=== PATIENT | female | born 1970 | race Caucasian/White ===

== ENCOUNTER 2017-04-05 04:24 | Emergency (ER) | payer BC ==
[~2017-04-05] VITALS: Ht 170.2 cm; Wt 127.3 kg
[2017-04-05 04:26] VITALS: TEMP 98.6
[2017-04-05 05:05] LABS: BASO % 0.5 % (0.0-2.0); EOS # 0.2 (0.0-0.7); EOS % 2.4 % (0-4.0); GRAN # 3.8 (1.4-6.5); HEMATOCRIT 42.7 % (37.0-47.0); HEMOGLOBIN 14.5 g/dl (12.5-16.0); LYMPH # 1.9 (1.2-3.4); LYMPH % 30.8 % (20.0-51.0); MEAN CELL VOLUME 79 fl (80.0-100.0); MEAN CORPUSCULAR HEMOGLOBIN 27 pg (27.0-31.0); MEAN CORPUSCULAR HGB CONC 34 g/dl (33.0-37.0); MEAN PLATELET VOLUME 9.3 fl (7.4-10.4); MONO # 0.4 (0.1-0.6); PLATELET COUNT 226 K/mm3 (130-400); RED BLOOD COUNT 5.41 M/mm3 (4.10-5.30); WHITE BLOOD COUNT 6.3 K/mm3 (4.8-10.8)
[2017-04-05 05:15] LABS: ADJUSTED CALCIUM 9.4 mg/dL (8.4-10.2); ALBUMIN 4.1 gm/dL (3.5-5.0); BILIRUBIN,TOTAL 0.8 mg/dL (0.0-1.0); C-REACTIVE PROTEIN 2.1 mg/dL (0.0-0.9); CALCIUM 9.5 mg/dL (8.4-10.2); CREATININE, serum 0.71 mg/dL (0.52-1.25); TOTAL PROTEIN 7.1 gm/dL (6.4-8.2)
[2017-04-05 05:24] LABS: ERYTHROCYTE SEDIMENTATION RATE 4 mm/hr (0-20)
[2017-04-05] MEDS ORDERED: DOXYCYCLINE HY100 MG PO (05:39)
[2017-04-05] MEDS ORDERED: LYRICA 150MG C150 MG PO (05:40)
[2017-04-05 06:13] LABS: PH 6 (5-8); SQUAMOUS EPITHELIAL 0-2 /hpf; URINE APPEARANCE Clear; URINE BACTERIA None Seen /hpf; URINE BILIRUBIN Negative (NEGATIVE); URINE BLOOD Negative (NEGATIVE); URINE COLOR Yellow; URINE GLUCOSE Negative (NEGATIVE); URINE KETONE Negative (NEGATIVE); URINE RBC 0-2 /hpf; URINE UROBILINOGEN Negative (NEGATIVE); URINE WBC 0-2 /hpf
[2017-04-05] MEDS ORDERED: ZOFRAN8 MG PO (06:47)
[2017-04-05] MEDS ORDERED: PERCOCET 325 MG1 TA2 PO (06:47)
[2017-04-05] MEDS ORDERED: CIPRO 500MG TA500 MG PO (06:47)
[2017-04-05] MEDS ORDERED: ULTRAM 50MG TAB50 MG PO (06:47)
[2017-04-05] MEDS ORDERED: FLAGYL500 MG PO (06:47)
[2017-04-05 07:02] VITALS: BP 108/56; PULSE 82
== END 2017-04-05 07:46 | disposition home or self-care (01) ==
LOC: COL.ER 04:24
PROVIDERS: Emergency Medicine
DX: K57.92 Diverticulitis of intestine, part unspecified, without perforation or abscess without bleeding (principal); Z87.39 Personal history of other diseases of the musculoskeletal system and connective tissue
CPT/HCPCS: J1170; J2405; Q9967

== ENCOUNTER → 2019-09-27 | Outpatient (CLI) | payer BC ==
[2005-11-28 07:27] VITALS: TEMP 98.9
[~2019-09-27] MED LIST: CIPRO 500MG TA500 MG PO; DOXYCYCLINE HY100 MG PO; FLAGYL500 MG PO; LYRICA 150MG C150 MG PO; PERCOCET 325 MG1 TA2 PO; ULTRAM 50MG TAB50 MG PO; ZOFRAN8 MG PO
== END ==
LOC: COL.RAD 07:22
DX: R94.5 Abnormal results of liver function studies (principal); R10.11 Right upper quadrant pain

== ENCOUNTER → 2019-10-30 | Outpatient (CLI) | payer BC ==
[2005-11-28 07:27] VITALS: TEMP 98.9
[~2019-10-30] MED LIST changes: +CRESTOR5 MG PO; +LOFIBRA160 MG PO
== END ==
LOC: LIGHT 08:58
DX: Z02.89 Encounter for other administrative examinations (principal)

== ENCOUNTER → 2020-01-23 | Outpatient (CLI) | payer BC ==
[~2020-01-23] VITALS: Ht 167.6 cm; Wt 145.8 kg
[2020-01-23 15:05] VITALS: BP 116/76; PULSE 84
== END ==
LOC: LIGHT 14:48
DX: E66.01 Morbid (severe) obesity due to excess calories (principal); Z68.43 Body mass index [BMI] 50.0-59.9, adult
CPT/HCPCS: G0463

== ENCOUNTER → 2020-02-03 | Outpatient (CLI) | payer BC ==
[2005-11-28 07:27] VITALS: TEMP 98.9
[~2020-02-03] MED LIST changes: +CRESTOR 10MG10 MG PO; -CRESTOR5 MG PO
== END ==
LOC: BHSO 08:53

== ENCOUNTER → 2020-03-05 | Outpatient (CLI) | payer BC ==
[~2020-03-05] VITALS: Ht 167.6 cm; Wt 145.4 kg
[~2020-03-05] MED LIST changes: -CRESTOR 10MG10 MG PO; +CRESTOR5 MG PO
[2020-03-05 16:26] VITALS: BP 120/86; PULSE 100
== END ==
LOC: LIGHT 14:00
DX: E66.01 Morbid (severe) obesity due to excess calories (principal); Z68.43 Body mass index [BMI] 50.0-59.9, adult; E11.9 Type 2 diabetes mellitus without complications; E78.5 Hyperlipidemia, unspecified
CPT/HCPCS: G0463

== ENCOUNTER → 2020-04-02 | Outpatient (CLI) | payer BC ==
[~2020-04-02] VITALS: Ht 167.6 cm; Wt 144.5 kg
[~2020-04-02] MED LIST changes: +CRESTOR 10MG10 MG PO; -CRESTOR5 MG PO
[2020-04-02 08:44] VITALS: BP 106/72; PULSE 72
== END ==
LOC: LIGHT 08:34
DX: E66.01 Morbid (severe) obesity due to excess calories (principal); Z68.43 Body mass index [BMI] 50.0-59.9, adult; E11.9 Type 2 diabetes mellitus without complications; E78.5 Hyperlipidemia, unspecified
CPT/HCPCS: G0463

== ENCOUNTER → 2020-05-07 | Outpatient (CLI) | payer BC ==
[~2020-05-07] VITALS: Ht 167.6 cm; Wt 143.1 kg
[~2020-05-07] MED LIST changes: +AMBIEN 10MG10 MG PO
[2020-05-07 16:07] VITALS: BP 104/80; PULSE 100
== END ==
LOC: LIGHT 11:20
DX: E66.01 Morbid (severe) obesity due to excess calories (principal); E78.5 Hyperlipidemia, unspecified; E11.9 Type 2 diabetes mellitus without complications
CPT/HCPCS: G0463

== ENCOUNTER → 2020-05-28 | Outpatient (CLI) | payer BC ==
[~2020-05-28] VITALS: Ht 167.6 cm; Wt 142.4 kg
[2020-05-28 11:07] VITALS: BP 116/84; PULSE 104
== END ==
LOC: LIGHT 11:00
DX: E66.01 Morbid (severe) obesity due to excess calories (principal); Z68.43 Body mass index [BMI] 50.0-59.9, adult; E11.9 Type 2 diabetes mellitus without complications; E78.5 Hyperlipidemia, unspecified
CPT/HCPCS: G0463

== ENCOUNTER → 2020-10-14 | Outpatient (CLI) | payer BC ==
[~2020-10-14] VITALS: Ht 168.9 cm; Wt 121.6 kg
[~2020-10-14] MED LIST changes: +OMNICEF 300MG300 MG PO; +ONE-A-DAY ESSE1 EACH PO
== END ==
LOC: DIET.TELE 15:21
DX: E66.01 Morbid (severe) obesity due to excess calories (principal); Z68.41 Body mass index [BMI] 40.0-44.9, adult

== ENCOUNTER → 2021-02-08 | Outpatient (CLI) | payer BC ==
[2005-11-28 07:27] VITALS: PULSE 98; TEMP 98.9
== END ==
LOC: MC.RAD 08:52
DX: Z12.31 Encounter for screening mammogram for malignant neoplasm of breast (principal)

== ENCOUNTER 2021-02-21 19:23 | Emergency (ER) | payer BC ==
[~2021-02-21] VITALS: Ht 170.2 cm; Wt 102.3 kg
[~2021-02-21 19:23] MED LIST changes: -OMNICEF 300MG300 MG PO; -ONE-A-DAY ESSE1 EACH PO
[2021-02-21 19:50] VITALS: TEMP 97.6
[2021-02-21 20:19] LABS: BASO # 0.1 (0.0-0.2); BASO % 0.6 % (0.0-2.0); EOS # 0.1 (0.0-0.7); EOS % 1.4 % (0-4.0); GRAN # 5.3 (1.4-6.5); HEMATOCRIT 46.3 % (37.0-47.0); HEMOGLOBIN 15.6 g/dl (12.5-16.0); LYMPH # 2.1 (1.2-3.4); LYMPH % 25.9 % (20.0-51.0); MEAN CELL VOLUME 83 fl (80.0-100.0); MEAN CORPUSCULAR HEMOGLOBIN 28 pg (27.0-31.0); MEAN CORPUSCULAR HGB CONC 34 g/dl (33.0-37.0); MEAN PLATELET VOLUME 9.8 fl (7.4-10.4); MONO # 0.6 (0.1-0.6); MONO % 6.9 % (1.7-9.3); PLATELET COUNT 300 K/mm3 (130-400); RED BLOOD COUNT 5.58 M/mm3 (4.10-5.30); REDCELL DISTRIBUTION WIDTH-CV 14.5 % (11.5-14.5)
[2021-02-21 20:33] LABS: LIPASE 175 U/L (23-300)
[2021-02-21 20:42] LABS: COLLECTION METHOD CLEAN CATCH
[2021-02-21 20:46] LABS: C-REACTIVE PROTEIN < 0.5 mg/dL (0.0-0.9)
[2021-02-21 20:57] LABS: MUCOUS Present /lpf; PH 5 (5-8); URINE APPEARANCE Cloudy; URINE BACTERIA None Seen /hpf; URINE BILIRUBIN Negative (NEGATIVE); URINE BLOOD 3+ (NEGATIVE); URINE CALCIUM OXALATE CRYSTAL Present /hpf; URINE COLOR Yellow; URINE GLUCOSE Negative (NEGATIVE); URINE KETONE Negative (NEGATIVE); URINE LEUKOCYTE ESTERASE 3+ (NEGATIVE); URINE NITRATE Negative (NEGATIVE); URINE PROTEIN(semi-quant) 2+ (NEGATIVE); URINE RBC >50 /hpf; URINE UROBILINOGEN >=4.0 mg/dL (NEGATIVE)
[2021-02-21] MEDS ORDERED: OMNICEF 300MG300 MG PO (21:08)
[2021-02-21 21:38] VITALS: BP 125/78; PULSE 71
[2021-04-02] MEDS ORDERED: ONE-A-DAY ESSE1 EACH PO (10:17)
== END 2021-02-21 21:40 | disposition home or self-care (01) ==
LOC: COL.ER 19:23
PROVIDERS: Nurse Practitioner Primary Care
DX: N39.0 Urinary tract infection, site not specified (principal); E78.1 Pure hyperglyceridemia; Z87.442 Personal history of urinary calculi; Z79.899 Other long term (current) drug therapy
CPT/HCPCS: J0696; J1885; J2405; J7030

== ENCOUNTER 2021-03-06 06:58 | Day surgery (SDC) | payer BC ==
[2021-03-06] VITALS (8 sets, daily range): BP systolic 100–109; BP diastolic 43–64; PULSE 52–65; TEMP 97.4–99
[~2021-03-06] VITALS: Ht 170.2 cm; Wt 102.0 kg
[~2021-03-06 06:58] MED LIST changes: +OMNICEF 300MG300 MG PO
--- NOTE | 2021-03-06 10:54 | NUR ---
Pt arrived back to the floor from [facility]. She is alert and oriented, although drowsy. She has been up to the restroom and has voided with no difficulty. Pt does have some complaints of pain urethra area, states feels sharp
--- NOTE | 2021-03-06 12:04 | NUR ---
Pt has had and tolerated a general diet. She states her pain is a little better since receiving the oral pain medicaion, rating it now 6/10. I asked if what she got to eat was ok and if she got enough, she stated it was fine. Pt gives very short answers and doesn't make eye contact. She does appear to be unhappy, but when I asked if she needs anything or if there is anything I can do she just shakes her head no. PT did request oxycodone if she is going home.
--- NOTE | 2021-03-06 12:34 | NUR ---
Plan is to return home with Carlos . SW met with patient and spouse in room. Patient gave permission to speak in front of spouse. Patient reprots that her pcp is Dr. Miller. Patient reports that she last seen the doctor 1 month ago. Patient shares that she uses [facility] for medications and obtains them without any proble, Patient reports that she has other specialist for care, Dr. Veliz, and Dr. Silva.Patient reports that she has a BIPAP but no longer uses it because she had bariatic surgery and does not believe she needs it. Patient denies needing any DME supports or services. SW educated on service with case management. with transport home. NF
--- NOTE | 2021-03-06 15:24 | NUR ---
Discharge instructions reviewed with patient and . Medication script provided to patient. Pt. verbalized understanding of discharge instructions and reports she will make an appointment with her PCP and Dr. Veliz. IV removed, site C/D/I. All questions answered. Informed patient to call using call light when ready to leave via wheelchair.
[2021-04-02] MEDS ORDERED: ONE-A-DAY ESSE1 EACH PO (10:17)
== END 2021-03-06 15:50 | disposition home or self-care (01) ==
LOC: SDCO 06:58 → SURG 06:59 → SDCO 09:00
DX: N20.1 Calculus of ureter (principal); E66.01 Morbid (severe) obesity due to excess calories; E78.5 Hyperlipidemia, unspecified; E11.9 Type 2 diabetes mellitus without complications; J45.909 Unspecified asthma, uncomplicated; G47.33 Obstructive sleep apnea (adult) (pediatric); Z79.899 Other long term (current) drug therapy
CPT/HCPCS: OP; C1769; J0690; J1100; J1885; J1940; J2405; J2704; J3010; J7120; Q9967

== ENCOUNTER → 2021-04-07 | Outpatient (CLI) | payer BC ==
[~2021-04-07] VITALS: Ht 170.2 cm; Wt 100.4 kg
[~2021-04-07] MED LIST changes: +ONE-A-DAY ESSE1 EACH PO
[2021-04-07 06:58] VITALS: BP 94/58; PULSE 81
[2021-04-07 08:14] VITALS: BP 102/69; PULSE 74
== END ==
LOC: COL.RAD 06:37
DX: M48.061 Spinal stenosis, lumbar region without neurogenic claudication (principal)
CPT/HCPCS: J3301

== ENCOUNTER → 2022-03-02 | Outpatient (CLI) | payer BC | LOC: MC.RAD 13:55 | DX: Z12.31 Encounter for screening mammogram for malignant neoplasm of breast (principal) ==

== ENCOUNTER → 2022-04-01 | Outpatient (CLI) | payer BC | LOC: COL.RAD 07:04 | DX: M19.011 Primary osteoarthritis, right shoulder (principal); U09.9 Post COVID-19 condition, unspecified; M75.111 Incomplete rotator cuff tear or rupture of right shoulder, not specified as traumatic ==

== ENCOUNTER → 2024-05-09 | Outpatient (CLI) | payer BC | LOC: MC.RAD 07:25 | DX: Z12.31 Encounter for screening mammogram for malignant neoplasm of breast (principal) ==